=== PATIENT | male | born 1975 | race African-American/Black ===

== ENCOUNTER 2021-07-15 07:22 | Emergency (ER) | payer OTHER ==
[~2021-07-15] VITALS: Ht 175.3 cm; Wt 100.0 kg
[2021-07-15 07:35] VITALS: BP 157/93
[2021-07-15] MEDS ORDERED: CYCLOBENZAPRINE 10MG TABLET PO ONE (08:30)
[2021-07-15] MEDS ORDERED: IBUPROFEN 800MG TABLET PO ONE (08:30)
[2021-07-15] MEDS ORDERED: HYDR30CR7 TP (09:33)
[2021-07-15] MEDS ORDERED: CYCL10TA7 MT (09:33)
[2021-07-15] MEDS ORDERED: IBUP-2028 MT (09:33)
== END 2021-07-15 09:56 | disposition home or self-care (01) ==
LOC: ER 07:22
DX: M54.9 Dorsalgia, unspecified (principal); L30.9 Dermatitis, unspecified; W10.9XXA Fall (on) (from) unspecified stairs and steps, initial encounter; Y93.89 Activity, other specified; Y92.9 Unspecified place or not applicable
CPT/HCPCS: 72100; 99283

== ENCOUNTER 2021-07-21 09:13 | Emergency (ER) | payer OTHER ==
[~2021-07-21] VITALS: Ht 180.3 cm; Wt 91.0 kg
[~2021-07-21 09:13] MED LIST: CYCL10TA7 MT; HYDR30CR7 TP; IBUP-2028 MT
[2021-07-21] MEDS ORDERED: PANTOPRAZOLE SODIUM 40 MG/VIAL IV ONE (09:30)
[2021-07-21] MEDS ORDERED: MAGNESIUM/ALUMINUM HYDROXIDE/SIMETHICONE 30ML UDC PO ONE (09:30)
[2021-07-21] MEDS ORDERED: VISCOUS LIDOCAINE 2% 15 ML UDC MM ONE (09:30)
[2021-07-21 10:16] VITALS: BP 151/87
== END 2021-07-21 09:46 | disposition home or self-care (01) ==
LOC: ER 09:13
DX: M54.9 Dorsalgia, unspecified (principal)
CPT/HCPCS: 99281

== ENCOUNTER 2022-09-07 13:43 | Emergency (ER) | payer OTHER ==
[~2022-09-07] VITALS: Ht 180.3 cm; Wt 100.0 kg
[~2022-09-07 13:43] MED LIST changes: +CYCL10TA21 MT; -CYCL10TA7 MT
[2022-09-07 13:47] VITALS: BP 162/97
[2022-09-07] MEDS ORDERED: CETI10CA11 MT (14:27)
== END 2022-09-07 15:11 | disposition home or self-care (01) ==
LOC: ER 13:43
DX: K11.20 Sialoadenitis, unspecified (principal)
CPT/HCPCS: 99281; 99282

== ENCOUNTER 2024-07-07 14:48 | Emergency (ER) | payer OTHER ==
[~2024-07-07] VITALS: Ht 180.3 cm; Wt 95.2 kg
[~2024-07-07 14:48] MED LIST changes: +CETI10CA11 MT
[2024-07-07 15:07] VITALS: O2SAT 98
[2024-07-07] MEDS: KETOROLAC 30MG/ML VIAL IM ONE (18:00)
[2024-07-07] MEDS: ACETAMINOPHEN 325MG TABLET PO ONE (18:00)
[2024-07-07] MEDS ORDERED: NAPR-1486 MT (18:39)
[2024-07-07 19:16] VITALS: BP 150/98; PULSE 80; RESP 14; TEMP 37; O2SAT 98
== END 2024-07-07 19:27 ==
LOC: ER 15:16
DX: M25.561 Pain in right knee (principal); Z79.899 Other long term (current) drug therapy
CPT/HCPCS: 73560; 99283; J1885